=== PATIENT | female | born 1980 | race Caucasian/White ===

== ENCOUNTER 2025-02-01 14:46 | Inpatient (IN) | payer BC ==
[~2025-02-01] VITALS: Ht 160 cm; Wt 66.2 kg
[2025-02-01 14:48] VITALS: O2SAT 97
[2025-02-01] MEDS: MORPHINE SULFATE 4 MG/ML INJ (FOR IV/IM USE) IV STA (15:18)
[2025-02-01] MEDS: ONDANSETRON HCL 4MG/2ML INJ IV STA (15:18)
[2025-02-01] MEDS: SODIUM CHLORIDE 0.9% (SEPSIS BOLUS) IV ONE (15:26)
[2025-02-01 15:50] LABS: CHLORIDE 101 mEq/L (98-107); PROTHROMBIN TIME 11.1 sec (9.6-11.0); SODIUM 137 mEq/L (136-145)
[2025-02-01 15:51] LABS: CALCIUM 10.2 mg/dL (8.7-10.4)
[2025-02-01 15:56] LABS: CREATININE 1.6 mg/dL (0.6-1.0); GLUCOSE 111 mg/dL (70-105); HCG SCREEN NEGATIVE; HEMATOCRIT. 42.3 % (36.0-48.0); HEMOGLOBIN. 12.5 g/dL (12.0-16.0); MEAN CORPUSCULAR HEMOGLOBIN 28.9 pg (28.0-32.0); MEAN CORPUSCULAR HGB CONC 29.6 g/dL (31.0-37.0); MEAN CORPUSCULAR VOLUME 97.9 fL (81.0-99.0); PLATELET 340 x1000/uL (130-400); RED BLOOD CELL COUNT 4.32 mill/uL (4.2-5.4); RED CELL DISTRIBUTION WIDTH 19.2 % (11.6-14.6); UREA NITROGEN BLOOD 14 mg/dL (9-23)
[2025-02-01 15:57] LABS: ETHANOL BLOOD 300 mg/dL (<10)
[2025-02-01 15:58] LABS: ALANINE AMINOTRANSFERASE 15 IU/L (10-49); ALBUMIN 5.3 g/dL (3.2-4.8); ASPARTATE AMINOTRANSFERASE 52 IU/L (<34); BILIRUBIN DIRECT 0.1 mg/dL (<=3.0); BILIRUBIN TOTAL 0.6 mg/dL (0.1-1.0)
[2025-02-01 15:59] LABS: PROTEIN TOTAL 8.9 g/dL (6.0-8.3)
[2025-02-01 16:09] LABS: CARBON DIOXIDE < 10 mEq/L (21-32)
[2025-02-01 16:10] LABS: POTASSIUM 6.6 mEq/L (3.5-5.1)
[2025-02-01 16:11] LABS: DIFFERENTIAL COMMENT 1
[2025-02-01 16:30] LABS: LACTIC ACID 9.3 mmol/L (0.4-2.0)
[2025-02-01] MEDS: HYDROMORPHONE HCL/PF 2MG/ML INJ IV NR (16:42)
[2025-02-01] MEDS: MEROPENEM 1G/100ML 100 ML IV NR (16:59)
[2025-02-01] MEDS: SODIUM BICARBONATE 8.4% 50MEQ/50ML SYR IV NR ×2 (16:59→19:22)
[2025-02-01] MEDS: DEXTROSE 50% WATER 50ML SYRINGE IV NR ×2 (16:59→19:23)
[2025-02-01] MEDS ORDERED: ACETAMINOPHEN 325MG TABLET PO PRN (17:00)
[2025-02-01] MEDS ORDERED: CLONIDINE 0.1MG TABLET PO PRN (17:00)
[2025-02-01] MEDS ORDERED: LORAZEPAM 2MG/ML INJ IV PRN (17:00)
[2025-02-01] MEDS: DEXT 5%/LACTATED RINGERS 1,000 ML IV ONE (17:00)
[2025-02-01] MEDS: INSULIN REGULAR (HUMULIN R) 1000UNITS/10ML VIAL IV NR ×2 (17:00→19:23)
[2025-02-01] MEDS ORDERED: IPRATROPIUM/ALBUTEROL 0.5-3(2.5)MG/3ML NEB NEB PRN (17:00)
[2025-02-01] MEDS ORDERED: VANCOMYCIN 1.5GM/250ML 250 ML IV NR (17:00)
[2025-02-01 17:21] LABS: ANISOCYTOSIS 2+; PLATELET ESTIMATE NORMAL
[2025-02-01] MEDS: ONDANSETRON HCL 4MG/2ML INJ IV PRN (17:50)
[2025-02-01] MEDS: MVI, ADULT NO.1 10 ML, FOLIC ACID 1 MG, THIAMINE HCL 100 MG in SODIUM CHLORIDE 0.9% 1,0... IV SCH (18:00)
[2025-02-01 18:08] LABS: BG BASE EXCESS -18.2 mmol/L (-2.0-3.0); BG CARBOXYHEMOGLOBIN 0.6 % (0.5-1.5); BG DEOXYHEMOGLOBIN 2.5 % (0.0-5.0); BG FRACTION INSPIRED OXYGEN 21; BG HCO3 ACT 8.1 mmol/L (21.0-28.0); BG METHEMOGLOBIN 0.4 % (0.5-1.5); BG OXYGEN SATURATION 97.5 % (94.0-98.0); BG OXYHEMOGLOBIN 96.5 % (94.0-98.0); BG PCO2 21.8 mmHg (32.0-45.0); BG PO2 102.3 mmHg (83.0-108.0); BG SAMPLE SITE LEFT BRACHIAL; BG TOTAL HEMOGLOBIN 12.2 g/dL (12.0-16.0); BG VENT MODE ROOM AIR
[2025-02-01] MEDS ORDERED: CALCIUM GLUCONATE 100MG/ML 10ML VIAL IV ONE (19:00)
[2025-02-01] MEDS ORDERED: INSULIN REGULAR (HUMULIN R) UD 100 UNITS/ML SYR IV ONE (19:00)
[2025-02-01] MEDS ORDERED: SODIUM BICARBONATE 8.4% 50MEQ/50ML SYR IV ONE (19:00)
[2025-02-01] MEDS ORDERED: DEXTROSE 50% WATER 50ML SYRINGE IV ONE (19:00)
[2025-02-01 19:37] LABS: PHOSPHORUS 5.1 mg/dL (2.5-4.9)
[2025-02-01] MEDS: CALCIUM GLUCONATE 100MG/ML 10ML VIAL IV NR (19:44)
[2025-02-01] MEDS: MORPHINE SULFATE 2 MG/ML INJ (NOT FOR IM USE) IV PRN (19:45)
[2025-02-01 20:00] VITALS: BP 115/73; PULSE 156; RESP 21; TEMP 37.4; O2SAT 96
[2025-02-01] MEDS ORDERED: SODIUM BICARBONATE 100 MEQ in DEXTROSE 5% WATER 900 ML IV SCH (20:15)
[2025-02-01] MEDS: SODIUM BICARBONATE 150 MEQ in DEXTROSE 5% WATER 850 ML IV SCH (20:30)
[2025-02-01] MEDS ORDERED: SODIUM BICARBONATE 150 MEQ in DEXTROSE 5% WATER 850 ML IV SCH (20:30)
[2025-02-01 21:27] LABS: POTASSIUM 3.6 mEq/L (3.5-5.1)
[2025-02-01 21:28] LABS: CALCIUM 9.5 mg/dL (8.7-10.4)
[2025-02-01] MEDS ORDERED: SODIUM CHLORIDE 0.9% 1,000 ML IV SCH (21:30)
[2025-02-01 21:33] LABS: CREATININE 1.1 mg/dL (0.6-1.0)
[2025-02-01 22:00] VITALS: BP 137/77; PULSE 144; RESP 20; O2SAT 98
[2025-02-01] MEDS: PIPERACILLIN/TAZO 3.375G/50ML 50 ML IV SCH (22:59)
[2025-02-01] MEDS: VANCOMYCIN 1.25GM/250ML 250 ML IV NR (23:40)
[2025-02-01 23:59] VITALS: BP 115/73; PULSE 120; RESP 17; TEMP 37.3
[2025-02-02] VITALS (11 sets, daily range): BP systolic 138–161; BP diastolic 74–122; PULSE 97–133; RESP 19–27; TEMP 36.3–37.8; O2SAT 97–99
[2025-02-02] MEDS ORDERED: TRAZ-251 PO (00:43)
[2025-02-02] MEDS ORDERED: FAMO20TA8 PO (00:46)
[2025-02-02] MEDS ORDERED: METO10TA3 PO (00:46)
[2025-02-02] MEDS ORDERED: AMYL1CAP61 PO (00:46)
[2025-02-02 01:34] LABS: CLARITY URINE CLEAR (CLEAR); COLOR URINE YELLOW (YELLOW); GLUCOSE URINE TRACE (NEGATIVE); KETONES URINE 3+ (NEGATIVE); LEUKOCYTE ESTERASE URINE NEGATIVE (NEGATIVE); NITRITE URINE NEGATIVE (NEGATIVE); OCCULT BLOOD URINE TRACE (NEGATIVE); PH URINE 5.5 (4.5-8.0); PROTEIN URINE 2+ (NEGATIVE); SPECIFIC GRAVITY URINE 1.016 (1.005-1.030); UROBILINOGEN URINE 0.2 E.U./dL (0.2-1.0)
[2025-02-02 02:10] LABS: *AMPHETAMINES SCREEN URINE NEGATIVE (NEGATIVE); *BARBITURATES SCREEN URINE NEGATIVE (NEGATIVE); *BENZODIAZEPINES SCREEN URINE NEGATIVE (NEGATIVE); *COCAINE SCREEN URINE NEGATIVE (NEGATIVE)
[2025-02-02 02:11] LABS: CANNABINOID URINE SCREEN PRESUMPTIVE POSITIVE (NEGATIVE); ECSTASY MDMA SCREEN URINE NEGATIVE (NEGATIVE); METHADONE URINE SCREEN NEGATIVE (NEGATIVE); OPIATES URINE SCREEN PRESUMPTIVE POSITIVE (NEGATIVE); PHENCYCLIDINE URINE SCREEN NEGATIVE (NEGATIVE)
[2025-02-02 02:58] LABS: SQUAMOUS EPITHELIAL CELL URINE FEW /lpf (RARE/1+)
[2025-02-02 03:06] LABS: RBC URINE 0-2 /hpf (0-2)
[2025-02-02 03:07] LABS: BACTERIA URINE 2+
[2025-02-02 04:06] LABS: TROPONIN I HIGH SENSITIVITY 1223 ng/L (3.0-34)
[2025-02-02 07:56] LABS: BASOPHILS % 0.3 % (0.0-2.0); EOSINOPHILS % 0.1 % (0.0-5.0); HEMATOCRIT. 31.7 % (36.0-48.0); HEMOGLOBIN. 10.6 g/dL (12.0-16.0); LYMPHOCYTES % 15.6 % (20.0-50.0); MEAN CORPUSCULAR HEMOGLOBIN 28.9 pg (28.0-32.0); MEAN CORPUSCULAR HGB CONC 33.6 g/dL (31.0-37.0); MEAN CORPUSCULAR VOLUME 86.1 fL (81.0-99.0); MONOCYTES % 9.5 % (2.0-8.0); NEUTROPHILS % 74.5 % (40.0-76.0); PLATELET 146 x1000/uL (130-400); RED BLOOD CELL COUNT 3.68 mill/uL (4.2-5.4); RED CELL DISTRIBUTION WIDTH 18.3 % (11.6-14.6)
[2025-02-02 08:06] LABS: CHLORIDE 96 mEq/L (98-107); POTASSIUM 3.6 mEq/L (3.5-5.1); SODIUM 141 mEq/L (136-145)
[2025-02-02 08:07] LABS: CALCIUM 9.5 mg/dL (8.7-10.4); CARBON DIOXIDE 29 mEq/L (21-32)
[2025-02-02 08:12] LABS: CREATININE 0.8 mg/dL (0.6-1.0); GLUCOSE 153 mg/dL (70-105); UREA NITROGEN BLOOD 11 mg/dL (9-23)
[2025-02-02] MEDS: PANTOPRAZOLE SODIUM 40 MG/VIAL IV SCH (09:43)
[2025-02-02] MEDS: ENOXAPARIN 40MG/0.4ML SYR SUBCUT SCH (09:46)
[2025-02-02 10:07] LABS: TROPONIN I HIGH SENSITIVITY 926 ng/L (3.0-34)
[2025-02-02 10:39] LABS: CREATINE KINASE 85 IU/L (34-145)
[2025-02-02] MEDS: VANCOMYCIN 750MG PREMIX 150 ML IV SCH (11:54)
[2025-02-02] MEDS ORDERED: NALOXONE HCL 0.4MG/ML VIAL IV PRN (17:15)
[2025-02-02] MEDS: MORPHINE SULFATE 4 MG/ML INJ (FOR IV/IM USE) IV PRN (18:19)
[2025-02-02] MEDS: METOCLOPRAMIDE HCL 10MG/2ML VIAL IV SCH (18:19)
[2025-02-02] MEDS ORDERED: MORPHINE SULFATE 2 MG/ML INJ (NOT FOR IM USE) IV PRN (23:00)
[2025-02-03] VITALS (13 sets, daily range): BP systolic 127–169; BP diastolic 82–107; PULSE 82–116; RESP 9–28; TEMP 37.1–37.8; O2SAT 96–98
[2025-02-03 06:04] LABS: CARBON DIOXIDE 35 mEq/L (21-32); CHLORIDE 94 mEq/L (98-107); SODIUM 142 mEq/L (136-145)
[2025-02-03 06:05] LABS: CALCIUM 9.5 mg/dL (8.7-10.4)
[2025-02-03 06:10] LABS: CREATININE 0.6 mg/dL (0.6-1.0); GLUCOSE 116 mg/dL (70-105); UREA NITROGEN BLOOD 5 mg/dL (9-23)
[2025-02-03 06:12] LABS: PHOSPHORUS 1.1 mg/dL (2.5-4.9)
[2025-02-03 06:23] LABS: BASOPHILS % 0.2 % (0.0-2.0); HEMATOCRIT. 35.8 % (36.0-48.0); HEMOGLOBIN. 11.9 g/dL (12.0-16.0); LYMPHOCYTES % 22.2 % (20.0-50.0); MEAN CORPUSCULAR HEMOGLOBIN 29.1 pg (28.0-32.0); MEAN CORPUSCULAR HGB CONC 33.3 g/dL (31.0-37.0); MEAN CORPUSCULAR VOLUME 87.3 fL (81.0-99.0); MEAN PLATELET VOLUME 8.2 fl (7.4-10.4); MONOCYTES % 5.2 % (2.0-8.0); NEUTROPHILS % 72.4 % (40.0-76.0); PLATELET 141 x1000/uL (130-400); RED CELL DISTRIBUTION WIDTH 18.4 % (11.6-14.6); WHITE BLOOD COUNT 5.7 x1000/uL (4.5-11.0)
[2025-02-03 06:59] LABS: POTASSIUM 2.3 mEq/L (3.5-5.1)
[2025-02-03] MEDS: KCL 20MEQ/100ML PREMIX 100 ML IV SCH (10:36)
[2025-02-03] MEDS: MAGNESIUM 2 G PREMIX 50 ML IV NR (10:37)
[2025-02-03] MEDS: LORAZEPAM 0.5MG TABLET PO PRN (12:44)
[2025-02-03] MEDS: POTASSIUM PHOSPHATE 30 MMOL in SODIUM CHLORIDE 0.9% 490 ML IV NR (14:05)
[2025-02-03 17:42] LABS: POTASSIUM 2.4 mEq/L (3.5-5.1)
[2025-02-03] MEDS ORDERED: VANCOMYCIN 1.25GM/250ML IV SCH (21:00)
[2025-02-03] MEDS: POTASSIUM CHLORIDE 60 MEQ in SODIUM CHLORIDE 0.9% 500 ML IV NR (21:58)
[2025-02-04] VITALS (9 sets, daily range): BP systolic 113–143; BP diastolic 72–102; PULSE 73–97; RESP 12–20; TEMP 36.7–37.4; O2SAT 95–99
[2025-02-04 06:03] LABS: CARBON DIOXIDE 28 mEq/L (21-32); CHLORIDE 104 mEq/L (98-107); SODIUM 145 mEq/L (136-145)
[2025-02-04 06:04] LABS: CALCIUM 9.2 mg/dL (8.7-10.4)
[2025-02-04 06:08] LABS: GLUCOSE 102 mg/dL (70-105)
[2025-02-04 06:09] LABS: UREA NITROGEN BLOOD 5 mg/dL (9-23)
[2025-02-04 06:11] LABS: PHOSPHORUS 2.6 mg/dL (2.5-4.9)
[2025-02-04 06:20] LABS: CREATININE 0.4 mg/dL (0.6-1.0)
[2025-02-04 06:24] LABS: BASOPHILS % 0.5 % (0.0-2.0); EOSINOPHILS % 0.5 % (0.0-5.0); HEMATOCRIT. 31.8 % (36.0-48.0); HEMOGLOBIN. 10.4 g/dL (12.0-16.0); LYMPHOCYTES % 30.7 % (20.0-50.0); MEAN CORPUSCULAR HEMOGLOBIN 28.7 pg (28.0-32.0); MEAN CORPUSCULAR HGB CONC 32.7 g/dL (31.0-37.0); MEAN CORPUSCULAR VOLUME 87.8 fL (81.0-99.0); MEAN PLATELET VOLUME 8.4 fl (7.4-10.4); MONOCYTES % 4.4 % (2.0-8.0); NEUTROPHILS % 63.9 % (40.0-76.0); PLATELET 122 x1000/uL (130-400); RED BLOOD CELL COUNT 3.62 mill/uL (4.2-5.4); RED CELL DISTRIBUTION WIDTH 18.4 % (11.6-14.6); WHITE BLOOD COUNT 5.4 x1000/uL (4.5-11.0)
[2025-02-04 10:33] LABS: CHLORIDE 103 mEq/L (98-107); POTASSIUM 2.9 mEq/L (3.5-5.1); SODIUM 142 mEq/L (136-145)
[2025-02-04 10:34] LABS: CALCIUM 9.5 mg/dL (8.7-10.4); CARBON DIOXIDE 26 mEq/L (21-32)
[2025-02-04 10:39] LABS: CREATININE 0.5 mg/dL (0.6-1.0); GLUCOSE 97 mg/dL (70-105)
[2025-02-04 10:40] LABS: UREA NITROGEN BLOOD 6 mg/dL (9-23)
[2025-02-04] MEDS ORDERED: KCL 20MEQ/100ML PREMIX 100 ML IV SCH (11:00)
[2025-02-04] MEDS: KCL 20MEQ/100ML PREMIX 100 ML IV SCH (11:32)
[2025-02-04] MEDS: HYDROCODONE/ACETAMINOPHEN 5/325MG TABLET PO PRN (18:09)
[2025-02-04] MEDS: POTASSIUM CHLORIDE 20MEQ TABLET SR PO NR (22:18)
[2025-02-05] VITALS: BP 148/93; PULSE 94; RESP 19; TEMP 36.8; O2SAT 98
[2025-02-05 01:16] LABS: CHLORIDE 100 mEq/L (98-107); SODIUM 138 mEq/L (136-145)
[2025-02-05 01:17] LABS: CALCIUM 9.9 mg/dL (8.7-10.4); CARBON DIOXIDE 26 mEq/L (21-32)
[2025-02-05 01:22] LABS: CREATININE 0.5 mg/dL (0.6-1.0); GLUCOSE 91 mg/dL (70-105); UREA NITROGEN BLOOD 6 mg/dL (9-23)
[2025-02-05 04:00] VITALS: BP 156/90; RESP 18; TEMP 36.2; O2SAT 88
[2025-02-05 07:27] LABS: BASOPHILS % 0.6 % (0.0-2.0); EOSINOPHILS % 2.1 % (0.0-5.0); HEMATOCRIT. 32.1 % (36.0-48.0); HEMOGLOBIN. 10.6 g/dL (12.0-16.0); LYMPHOCYTES % 43.4 % (20.0-50.0); MEAN CORPUSCULAR HEMOGLOBIN 28.8 pg (28.0-32.0); MEAN CORPUSCULAR HGB CONC 32.9 g/dL (31.0-37.0); MEAN CORPUSCULAR VOLUME 87.4 fL (81.0-99.0); MEAN PLATELET VOLUME 7.9 fl (7.4-10.4); MONOCYTES % 5.5 % (2.0-8.0); NEUTROPHILS % 48.4 % (40.0-76.0); PLATELET 120 x1000/uL (130-400); RED BLOOD CELL COUNT 3.68 mill/uL (4.2-5.4); RED CELL DISTRIBUTION WIDTH 18.3 % (11.6-14.6); WHITE BLOOD COUNT 4.3 x1000/uL (4.5-11.0)
[2025-02-05 07:31] LABS: CHLORIDE 104 mEq/L (98-107); SODIUM 142 mEq/L (136-145)
[2025-02-05 07:32] LABS: CALCIUM 9.8 mg/dL (8.7-10.4); CARBON DIOXIDE 27 mEq/L (21-32)
[2025-02-05 07:37] LABS: CREATININE 0.5 mg/dL (0.6-1.0); GLUCOSE 102 mg/dL (70-105)
[2025-02-05 07:38] LABS: UREA NITROGEN BLOOD 5 mg/dL (9-23)
[2025-02-05 08:57] VITALS: BP 152/82; PULSE 78; RESP 18; TEMP 36.9; O2SAT 97
[2025-02-05] MEDS: KCL 20MEQ/100ML PREMIX 100 ML IV SCH (09:30)
[2025-02-05 12:00] VITALS: BP 155/93; PULSE 78; RESP 18; TEMP 36.6; O2SAT 97
[2025-02-05 16:00] VITALS: BP_SYST 155; BP_SYST 157; BP_DIAS 89; BP_DIAS 94; PULSE 85; PULSE 88; RESP 18; RESP 19; TEMP 36.4; TEMP 36.5; O2SAT 99
[2025-02-05] MEDS: POTASSIUM CHLORIDE 20MEQ TABLET SR PO SCH (16:15)
[2025-02-05 20:00] VITALS: BP 158/94; PULSE 102; RESP 20; TEMP 36.6; O2SAT 99
[2025-02-05] MEDS: ZOLPIDEM TARTRATE 5MG TABLET PO PRN (22:03)
[2025-02-06] VITALS: BP 137/99; PULSE 98; RESP 20; TEMP 36.2; O2SAT 97
[2025-02-06 04:00] VITALS: BP 129/81; PULSE 72; RESP 20; TEMP 36.5; O2SAT 98
[2025-02-06 07:23] LABS: BASOPHILS % 0.9 % (0.0-2.0); EOSINOPHILS % 3.3 % (0.0-5.0); HEMATOCRIT. 35.4 % (36.0-48.0); HEMOGLOBIN. 11.2 g/dL (12.0-16.0); LYMPHOCYTES % 47.4 % (20.0-50.0); MEAN CORPUSCULAR HEMOGLOBIN 28.5 pg (28.0-32.0); MEAN CORPUSCULAR HGB CONC 31.6 g/dL (31.0-37.0); MEAN PLATELET VOLUME 8.2 fl (7.4-10.4); MONOCYTES % 8.1 % (2.0-8.0); NEUTROPHILS % 40.3 % (40.0-76.0); PLATELET 137 x1000/uL (130-400); RED BLOOD CELL COUNT 3.93 mill/uL (4.2-5.4); RED CELL DISTRIBUTION WIDTH 18.7 % (11.6-14.6); WHITE BLOOD COUNT 4.4 x1000/uL (4.5-11.0)
[2025-02-06 07:31] LABS: CARBON DIOXIDE 28 mEq/L (21-32); CHLORIDE 104 mEq/L (98-107); POTASSIUM 3.3 mEq/L (3.5-5.1); SODIUM 142 mEq/L (136-145)
[2025-02-06 07:32] LABS: CALCIUM 10.2 mg/dL (8.7-10.4)
[2025-02-06 07:37] LABS: CREATININE 0.6 mg/dL (0.6-1.0); GLUCOSE 109 mg/dL (70-105); UREA NITROGEN BLOOD 9 mg/dL (9-23)
[2025-02-06 08:00] VITALS: BP 114/78; PULSE 75; RESP 15; TEMP 36.1; O2SAT 96
[2025-02-06 12:00] VITALS: BP 154/81; PULSE 91; RESP 18; TEMP 36.3; O2SAT 98
[2025-02-06] MEDS ORDERED: TRAZ-251 PO (15:19)
[2025-02-06] MEDS ORDERED: AMYL1CAP61 PO (15:19)
[2025-02-06] MEDS ORDERED: POTA-204 PO (15:19)
[2025-02-06] MEDS ORDERED: THIA100T72 MT (15:21)
[2025-02-06] MEDS ORDERED: ONDA4TAB50 MT (15:21)
[2025-02-06 16:00] VITALS: BP 136/78; PULSE 82; RESP 18; TEMP 36.6; O2SAT 99
[2025-02-06] MEDS ORDERED: HYDR-4001 MT (16:15)
[2025-02-06 16:47] VITALS: BP 136/78; PULSE 82; TEMP 97.9
== END 2025-02-06 18:10 | disposition home or self-care (01) | DRG 871 ==
LOC: ER 14:46 → EDBEDREQ 16:42 → EDBEDREQSVC 16:42 → 5EST 18:07 → 6WST 02-04 17:16
PROVIDERS: ADMIT Internal Medicine; ATTEND Internal Medicine
DX: A41.9 Sepsis, unspecified organism (principal); G92.8 Other toxic encephalopathy; K85.90 Acute pancreatitis without necrosis or infection, unspecified; I21.4 Non-ST elevation (NSTEMI) myocardial infarction; N20.1 Calculus of ureter; E87.29 Other acidosis; N17.9 Acute kidney failure, unspecified; K52.9 Noninfective gastroenteritis and colitis, unspecified; F10.129 Alcohol abuse with intoxication, unspecified; E87.5 Hyperkalemia; R16.0 Hepatomegaly, not elsewhere classified; N20.0 Calculus of kidney; N18.1 Chronic kidney disease, stage 1; R80.9 Proteinuria, unspecified; E83.39 Other disorders of phosphorus metabolism; E83.42 Hypomagnesemia; E86.9 Volume depletion, unspecified; E87.6 Hypokalemia; Y90.8 Blood alcohol level of 240 mg/100 ml or more; Z22.322 Carrier or suspected carrier of Methicillin resistant Staphylococcus aureus; Z90.710 Acquired absence of both cervix and uterus
CPT/HCPCS: 36415; 36600; 71045; 74176; 76770; 80048; 80076; 80202; 80305; 80320; 81003; 82375; 82550; 82805; 82962; 83605; 83735; 84100; 84132; 84145; 84484; 84703; 85025; 86850; 86900; 87045; 87449; 93005; 93970; 99291; A4606; J0610; J1171; J1650; J1815; J2185; J2270; J2405; J2470; J2543; J2765; J3370; J3411; J3475; J3480; J3490; J7030; J7040; J7070; J7121; G0480

== ENCOUNTER 2025-03-05 20:25 | Inpatient (IN) | payer BC ==
[~2025-03-05] VITALS: Ht 154.9 cm; Wt 67.6 kg
[~2025-03-05 20:25] MED LIST: AMYL1CAP61 PO; HYDR-4001 MT; ONDA4TAB50 MT; POTA-204 PO; THIA100T72 MT; TRAZ-251 PO
[2025-03-05 21:06] LABS: HEMATOCRIT. 38.4 % (36.0-48.0); HEMOGLOBIN. 12.5 g/dL (12.0-16.0); LYMPHOCYTES % 18.1 % (20.0-50.0); MEAN CORPUSCULAR HEMOGLOBIN 29.7 pg (28.0-32.0); MEAN CORPUSCULAR HGB CONC 32.6 g/dL (31.0-37.0); MEAN PLATELET VOLUME 7.3 fl (7.4-10.4); MONOCYTES % 3.5 % (2.0-8.0); NEUTROPHILS % 77.4 % (40.0-76.0); PLATELET 361 x1000/uL (130-400); RED BLOOD CELL COUNT 4.22 mill/uL (4.2-5.4); RED CELL DISTRIBUTION WIDTH 20.3 % (11.6-14.6); WHITE BLOOD COUNT 6.8 x1000/uL (4.5-11.0)
[2025-03-05 21:15] LABS: CHLORIDE 98 mEq/L (98-107); POTASSIUM 4.1 mEq/L (3.5-5.1); SODIUM 134 mEq/L (136-145)
[2025-03-05 21:16] LABS: CALCIUM 9.6 mg/dL (8.7-10.4); CARBON DIOXIDE 13 mEq/L (21-32)
[2025-03-05 21:21] LABS: CREATININE 0.7 mg/dL (0.6-1.0); GLUCOSE 70 mg/dL (70-105); TROPONIN I HIGH SENSITIVITY 7 ng/L (3.0-34)
[2025-03-05 21:22] LABS: UREA NITROGEN BLOOD 7 mg/dL (9-23)
[2025-03-05 21:36] LABS: LACTIC ACID 6.2 mmol/L (0.4-2.0)
[2025-03-05] MEDS: SODIUM CHLORIDE 0.9% 1,000 ML IV ONE (21:48)
[2025-03-05] MEDS: ONDANSETRON HCL 4MG/2ML INJ IV STA (22:02)
[2025-03-05] MEDS: MORPHINE SULFATE 4 MG/ML INJ (FOR IV/IM USE) IV STA (22:06)
[2025-03-05] MEDS ORDERED: PIPERACILLIN/TAZO 3.375G/100ML 100 ML IV SCH (22:15)
[2025-03-05] MEDS: PIPERACILLIN/TAZO 3.375G/50ML 50 ML IV NR (23:00)
[2025-03-06] MEDS: METOCLOPRAMIDE HCL 10MG/2ML VIAL IV ONE (00:03)
[2025-03-06] MEDS: SODIUM CHLORIDE 0.9% 1,000 ML IV ONE (00:04)
[2025-03-06] MEDS: MORPHINE SULFATE 4 MG/ML INJ (FOR IV/IM USE) IV ONE (01:43)
[2025-03-06] MEDS: ONDANSETRON HCL 4MG/2ML INJ IV PRN ×2 (03:47→12:46)
[2025-03-06 04:00] VITALS: BP_SYST 149; BP_SYST 160; BP_DIAS 84; BP_DIAS 98; PULSE 109; PULSE 128; RESP 18; RESP 20; TEMP 36.5; TEMP 36.6; O2SAT 96
[2025-03-06] MEDS ORDERED: IOHEXOL-350 100 ML BOTTLE ONE (04:22)
[2025-03-06] MEDS: MORPHINE SULFATE 2 MG/ML INJ (NOT FOR IM USE) IV PRN (04:56)
[2025-03-06] MEDS: SODIUM CHLORIDE 0.9% 1,000 ML IV SCH (05:00)
[2025-03-06] MEDS: FOLIC ACID 1 MG, THIAMINE HCL 100 MG, MVI, ADULT NO.1 10 ML in DEXTROSE 5% WATER 1,000 ML IV ONE (05:46)
[2025-03-06] MEDS ORDERED: CLONIDINE 0.1MG TABLET PO PRN ×2 (07:30→11:15)
[2025-03-06 08:00] VITALS: BP 156/87; PULSE 102; RESP 18; TEMP 36.8; O2SAT 96
[2025-03-06] MEDS ORDERED: NALOXONE HCL 0.4MG/ML VIAL IV PRN (08:00)
[2025-03-06] MEDS ORDERED: ACETAMINOPHEN 325MG TABLET PO PRN (11:15)
[2025-03-06 12:00] VITALS: BP 142/88; PULSE 110; RESP 18; TEMP 36.9; O2SAT 98
[2025-03-06] MEDS: ENOXAPARIN 40MG/0.4ML SYR SUBCUT SCH (12:00)
[2025-03-06] MEDS: HYDROMORPHONE HCL/PF 1MG/ML INJ IV PRN (13:08)
[2025-03-06 13:21] LABS: BASOPHILS % 0.7 % (0.0-2.0); EOSINOPHILS % 0.1 % (0.0-5.0); HEMATOCRIT. 32.6 % (36.0-48.0); HEMOGLOBIN. 10.6 g/dL (12.0-16.0); LYMPHOCYTES % 17.4 % (20.0-50.0); MEAN CORPUSCULAR HEMOGLOBIN 29.8 pg (28.0-32.0); MEAN CORPUSCULAR HGB CONC 32.7 g/dL (31.0-37.0); MEAN PLATELET VOLUME 7.9 fl (7.4-10.4); MONOCYTES % 5.3 % (2.0-8.0); NEUTROPHILS % 76.5 % (40.0-76.0); PLATELET 276 x1000/uL (130-400); RED BLOOD CELL COUNT 3.58 mill/uL (4.2-5.4); RED CELL DISTRIBUTION WIDTH 20.2 % (11.6-14.6); WHITE BLOOD COUNT 12.6 x1000/uL (4.5-11.0)
[2025-03-06 13:27] LABS: CHLORIDE 97 mEq/L (98-107); POTASSIUM 4.3 mEq/L (3.5-5.1); SODIUM 127 mEq/L (136-145)
[2025-03-06 13:28] LABS: CARBON DIOXIDE 16 mEq/L (21-32)
[2025-03-06 13:33] LABS: CREATININE 0.7 mg/dL (0.6-1.0); GLUCOSE 112 mg/dL (70-105); UREA NITROGEN BLOOD 6 mg/dL (9-23)
[2025-03-06] MEDS: PIPERACILLIN/TAZO 3.375G/50ML 50 ML IV SCH (15:04)
[2025-03-06 16:00] VITALS: BP 151/95; PULSE 100; RESP 18; TEMP 36.8; O2SAT 100
[2025-03-06 20:00] VITALS: BP 146/85; PULSE 99; RESP 18; TEMP 36.6; O2SAT 90
[2025-03-06] MEDS: ZOLPIDEM TARTRATE 5MG TABLET PO PRN (22:50)
[2025-03-07] VITALS: BP 150/87; PULSE 99; RESP 18; TEMP 36.4; O2SAT 99
[2025-03-07 04:00] VITALS: BP 123/78; PULSE 101; RESP 18; TEMP 36.4; O2SAT 98
[2025-03-07 06:58] LABS: BASOPHILS % 1.1 % (0.0-2.0); EOSINOPHILS % 2.2 % (0.0-5.0); HEMATOCRIT. 31.5 % (36.0-48.0); HEMOGLOBIN. 10.3 g/dL (12.0-16.0); LYMPHOCYTES % 41.2 % (20.0-50.0); MEAN CORPUSCULAR HEMOGLOBIN 29.9 pg (28.0-32.0); MEAN CORPUSCULAR HGB CONC 32.9 g/dL (31.0-37.0); MEAN CORPUSCULAR VOLUME 90.8 fL (81.0-99.0); MONOCYTES % 5.7 % (2.0-8.0); NEUTROPHILS % 49.8 % (40.0-76.0); PLATELET 236 x1000/uL (130-400); RED BLOOD CELL COUNT 3.46 mill/uL (4.2-5.4); RED CELL DISTRIBUTION WIDTH 19.3 % (11.6-14.6); WHITE BLOOD COUNT 5.1 x1000/uL (4.5-11.0)
[2025-03-07 07:03] LABS: CARBON DIOXIDE 21 mEq/L (21-32); CHLORIDE 101 mEq/L (98-107); POTASSIUM 3.6 mEq/L (3.5-5.1)
[2025-03-07 07:04] LABS: CALCIUM 9.7 mg/dL (8.7-10.4)
[2025-03-07 07:07] LABS: CREATININE 0.7 mg/dL (0.6-1.0)
[2025-03-07 07:08] LABS: CLARITY URINE CLEAR (CLEAR); COLOR URINE YELLOW (YELLOW); GLUCOSE URINE NEGATIVE (NEGATIVE); KETONES URINE 2+ (NEGATIVE); LEUKOCYTE ESTERASE URINE 1+ (NEGATIVE); NITRITE URINE NEGATIVE (NEGATIVE); OCCULT BLOOD URINE NEGATIVE (NEGATIVE); PH URINE 6.5 (4.5-8.0); PROTEIN URINE TRACE (NEGATIVE); SPECIFIC GRAVITY URINE 1.011 (1.005-1.030); UROBILINOGEN URINE 0.2 E.U./dL (0.2-1.0)
[2025-03-07 07:09] LABS: GLUCOSE 73 mg/dL (70-105); UREA NITROGEN BLOOD 7 mg/dL (9-23)
[2025-03-07 07:12] LABS: SODIUM 136 mEq/L (136-145)
[2025-03-07 08:00] VITALS: BP 141/84; PULSE 69; RESP 12; TEMP 36.6; O2SAT 99
[2025-03-07 08:21] LABS: *AMPHETAMINES SCREEN URINE NEGATIVE (NEGATIVE); *BARBITURATES SCREEN URINE NEGATIVE (NEGATIVE); *BENZODIAZEPINES SCREEN URINE NEGATIVE (NEGATIVE); *COCAINE SCREEN URINE NEGATIVE (NEGATIVE)
[2025-03-07 08:22] LABS: METHADONE URINE SCREEN NEGATIVE (NEGATIVE)
[2025-03-07 08:23] LABS: CANNABINOID URINE SCREEN PRESUMPTIVE POSITIVE (NEGATIVE); ECSTASY MDMA SCREEN URINE NEGATIVE (NEGATIVE); OPIATES URINE SCREEN PRESUMPTIVE POSITIVE (NEGATIVE); PHENCYCLIDINE URINE SCREEN NEGATIVE (NEGATIVE)
[2025-03-07 08:34] LABS: SQUAMOUS EPITHELIAL CELL URINE 2+ /lpf (RARE/1+)
[2025-03-07 08:35] LABS: RBC URINE NONE SEEN /hpf (0-2)
[2025-03-07 08:35] LABS: BG BASE EXCESS -6.7 mmol/L (-2.0-3.0); BG CARBOXYHEMOGLOBIN 1.6 % (0.5-1.5); BG DEOXYHEMOGLOBIN 1.5 % (0.0-5.0); BG FRACTION INSPIRED OXYGEN 21; BG HCO3 ACT 17.4 mmol/L (21.0-28.0); BG METHEMOGLOBIN 0.3 % (0.5-1.5); BG OXYGEN SATURATION 98.5 % (94.0-98.0); BG OXYHEMOGLOBIN 96.6 % (94.0-98.0); BG PCO2 30.1 mmHg (32.0-45.0); BG PO2 104.9 mmHg (83.0-108.0); BG TOTAL HEMOGLOBIN 10.6 g/dL (12.0-16.0); BG VENT MODE ROOM AIR
[2025-03-07 08:36] LABS: BACTERIA URINE TRACE
[2025-03-07] MEDS: PANTOPRAZOLE SODIUM 40 MG/VIAL IV SCH (09:01)
[2025-03-07] MEDS: DOCUSATE SODIUM 100MG CAPSULE PO SCH (10:54)
[2025-03-07 12:00] VITALS: BP 125/64; PULSE 77; RESP 18; TEMP 36.7; O2SAT 100
[2025-03-07] MEDS: NA PHOS,M-B/NA PHOS,DI-BA ENEMA 118ML PR NR (15:01)
[2025-03-07 16:00] VITALS: BP 128/79; PULSE 89; RESP 13; TEMP 36.6; O2SAT 98
[2025-03-07 20:00] VITALS: BP 124/76; PULSE 95; RESP 17; TEMP 36.6; O2SAT 96
[2025-03-08] VITALS (7 sets, daily range): BP systolic 99–140; BP diastolic 61–76; PULSE 75–90; RESP 16–18; TEMP 36.5–36.8; O2SAT 98–100
[2025-03-08 11:57] LABS: BASOPHILS % 0.7 % (0.0-2.0); EOSINOPHILS % 2.4 % (0.0-5.0); HEMATOCRIT. 31.1 % (36.0-48.0); HEMOGLOBIN. 10.4 g/dL (12.0-16.0); LYMPHOCYTES % 34.1 % (20.0-50.0); MEAN CORPUSCULAR HEMOGLOBIN 29.9 pg (28.0-32.0); MEAN CORPUSCULAR HGB CONC 33.3 g/dL (31.0-37.0); MEAN CORPUSCULAR VOLUME 89.8 fL (81.0-99.0); MEAN PLATELET VOLUME 8.2 fl (7.4-10.4); NEUTROPHILS % 56.8 % (40.0-76.0); PLATELET 191 x1000/uL (130-400); RED BLOOD CELL COUNT 3.46 mill/uL (4.2-5.4); RED CELL DISTRIBUTION WIDTH 18.7 % (11.6-14.6); WHITE BLOOD COUNT 3.5 x1000/uL (4.5-11.0)
[2025-03-08 12:20] LABS: CARBON DIOXIDE 22 mEq/L (21-32); CHLORIDE 102 mEq/L (98-107); POTASSIUM 3.3 mEq/L (3.5-5.1); SODIUM 136 mEq/L (136-145)
[2025-03-08 12:21] LABS: CALCIUM 9.4 mg/dL (8.7-10.4)
[2025-03-08 12:25] LABS: CREATININE 0.5 mg/dL (0.6-1.0)
[2025-03-08 12:26] LABS: GLUCOSE 103 mg/dL (70-105); UREA NITROGEN BLOOD 5 mg/dL (9-23)
[2025-03-09] VITALS: BP 107/72; PULSE 73; RESP 16; TEMP 36.7; O2SAT 100
[2025-03-09 04:00] VITALS: BP 124/62; PULSE 95; RESP 18; TEMP 36.6; O2SAT 99
[2025-03-09 08:00] VITALS: BP 120/68; PULSE 65; RESP 19; TEMP 36.4; O2SAT 98
[2025-03-09 08:36] LABS: BASOPHILS % 0.7 % (0.0-2.0); EOSINOPHILS % 2.5 % (0.0-5.0); HEMATOCRIT. 29.1 % (36.0-48.0); HEMOGLOBIN. 9.6 g/dL (12.0-16.0); LYMPHOCYTES % 41.1 % (20.0-50.0); MEAN CORPUSCULAR HEMOGLOBIN 29.3 pg (28.0-32.0); MEAN CORPUSCULAR HGB CONC 32.9 g/dL (31.0-37.0); MEAN CORPUSCULAR VOLUME 88.9 fL (81.0-99.0); MEAN PLATELET VOLUME 8.1 fl (7.4-10.4); MONOCYTES % 5.6 % (2.0-8.0); NEUTROPHILS % 50.1 % (40.0-76.0); PLATELET 174 x1000/uL (130-400); RED BLOOD CELL COUNT 3.28 mill/uL (4.2-5.4); RED CELL DISTRIBUTION WIDTH 18.6 % (11.6-14.6); WHITE BLOOD COUNT 4.2 x1000/uL (4.5-11.0)
[2025-03-09 08:43] LABS: CARBON DIOXIDE 25 mEq/L (21-32); CHLORIDE 102 mEq/L (98-107); SODIUM 137 mEq/L (136-145)
[2025-03-09 08:45] LABS: CALCIUM 8.9 mg/dL (8.7-10.4)
[2025-03-09 08:49] LABS: CREATININE 0.5 mg/dL (0.6-1.0); GLUCOSE 96 mg/dL (70-105); UREA NITROGEN BLOOD < 5 mg/dL (9-23)
[2025-03-09 12:00] VITALS: BP 115/72; PULSE 86; RESP 17; TEMP 36.3; O2SAT 98
[2025-03-09] MEDS ORDERED: THIA100T72 MT (13:51)
[2025-03-09] MEDS ORDERED: ONDA4TAB50 MT (13:51)
[2025-03-09] MEDS ORDERED: POTA-204 PO (13:51)
[2025-03-09] MEDS: POTASSIUM CHLORIDE 20MEQ TABLET SR PO SCH (14:56)
[2025-03-09 16:00] VITALS: BP 126/78; PULSE 89; RESP 18; TEMP 36.4; O2SAT 98
[2025-03-09 16:30] VITALS: BP 126/78; PULSE 89; TEMP 97.6; O2SAT 98
== END 2025-03-09 16:51 | disposition home or self-care (01) | DRG 871 ==
LOC: ER 20:25 → 5WST 03-06 01:53
PROVIDERS: ADMIT Internal Medicine; ATTEND Internal Medicine
DX: A41.9 Sepsis, unspecified organism (principal); K85.90 Acute pancreatitis without necrosis or infection, unspecified; N13.6 Pyonephrosis; K86.1 Other chronic pancreatitis; F10.20 Alcohol dependence, uncomplicated; Z90.710 Acquired absence of both cervix and uterus; Z98.891 History of uterine scar from previous surgery
CPT/HCPCS: 36415; 36600; 71045; 74174; 80048; 80305; 81003; 82375; 82805; 82962; 83605; 84484; 85025; 87106; 93005; 93970; 96361; 96365; 96375; 99291; J1171; J1650; J2270; J2405; J2470; J2543; J2765; J3411; J3490; J7030; J7070; Q9967

== ENCOUNTER 2025-03-24 21:40 | Emergency (ER) | payer BC ==
[~2025-03-24] VITALS: Ht 165.1 cm; Wt 68.0 kg
[2025-03-24 21:50] VITALS: TEMP 37; O2SAT 97
[2025-03-25 00:52] LABS: CHLORIDE 102 mEq/L (98-107); POTASSIUM 3.9 mEq/L (3.5-5.1); SODIUM 138 mEq/L (136-145)
[2025-03-25 00:53] LABS: CALCIUM 8.8 mg/dL (8.7-10.4); CARBON DIOXIDE 14 mEq/L (21-32)
[2025-03-25 00:54] LABS: BASOPHILS % 0.8 % (0.0-2.0); HEMOGLOBIN. 11.4 g/dL (12.0-16.0); MEAN CORPUSCULAR HEMOGLOBIN 29.5 pg (28.0-32.0); MEAN CORPUSCULAR HGB CONC 32.6 g/dL (31.0-37.0); MEAN CORPUSCULAR VOLUME 90.5 fL (81.0-99.0); MEAN PLATELET VOLUME 7.9 fl (7.4-10.4); MONOCYTES % 3.6 % (2.0-8.0); NEUTROPHILS % 71.6 % (40.0-76.0); PLATELET 231 x1000/uL (130-400); RED BLOOD CELL COUNT 3.86 mill/uL (4.2-5.4); RED CELL DISTRIBUTION WIDTH 18.5 % (11.6-14.6)
[2025-03-25 00:58] LABS: CREATININE 0.5 mg/dL (0.6-1.0); ETHANOL BLOOD 300 mg/dL (<10); GLUCOSE 65 mg/dL (70-105); UREA NITROGEN BLOOD 8 mg/dL (9-23)
[2025-03-25] MEDS: SODIUM CHLORIDE 0.9% 1,000 ML IV ONE (00:58)
[2025-03-25 00:59] LABS: AMYLASE 95 IU/L (30-118); HCG SCREEN NEGATIVE
[2025-03-25 01:00] LABS: ACETAMINOPHEN < 2 ug/mL (10-30); ALANINE AMINOTRANSFERASE 23 IU/L (10-49); ALBUMIN 4.7 g/dL (3.2-4.8); ASPARTATE AMINOTRANSFERASE 48 IU/L (<34); BILIRUBIN DIRECT < 0.1 mg/dL (<=3.0); BILIRUBIN TOTAL 0.4 mg/dL (0.1-1.0); PHOSPHORUS 3.4 mg/dL (2.5-4.9); PROTEIN TOTAL 7.9 g/dL (6.0-8.3)
[2025-03-25 01:20] LABS: INR 0.9; PROTHROMBIN TIME 9.8 sec (9.6-11.0)
[2025-03-25] MEDS: MAGNESIUM 2 G PREMIX 50 ML IV SCH (01:58)
[2025-03-25] MEDS: MAGNESIUM/ALUMINUM HYDROXIDE/SIMETHICONE 30ML UDC PO SCH (01:59)
[2025-03-25] MEDS: ONDANSETRON HCL 4MG/2ML INJ IV SCH (02:01)
[2025-03-25] MEDS ORDERED: SODIUM CHLORIDE 0.9% 1,000 ML IV SCH (03:45)
[2025-03-25] MEDS: KETOROLAC 15MG/ML VIAL IV SCH (03:57)
[2025-03-25] MEDS ORDERED: IBUP-2029 MT (03:59)
[2025-03-25 04:41] LABS: CLARITY URINE CLEAR (CLEAR); COLOR URINE YELLOW (YELLOW); GLUCOSE URINE NEGATIVE (NEGATIVE); KETONES URINE 3+ (NEGATIVE); LEUKOCYTE ESTERASE URINE NEGATIVE (NEGATIVE); NITRITE URINE NEGATIVE (NEGATIVE); OCCULT BLOOD URINE NEGATIVE (NEGATIVE); PH URINE 5.5 (4.5-8.0); PROTEIN URINE 1+ (NEGATIVE); SPECIFIC GRAVITY URINE 1.015 (1.005-1.030); UROBILINOGEN URINE 0.2 E.U./dL (0.2-1.0)
[2025-03-25 04:58] VITALS: BP 115/68; PULSE 100; RESP 18; O2SAT 98
[2025-03-25 06:20] LABS: BACTERIA URINE TRACE; RBC URINE 0-2 /hpf (0-2); SQUAMOUS EPITHELIAL CELL URINE 3+ /lpf (RARE/1+); WBC URINE 0-2 /hpf (0-2)
[2025-03-25 09:19] LABS: *AMPHETAMINES SCREEN URINE NEGATIVE (NEGATIVE)
[2025-03-25 09:20] LABS: *BARBITURATES SCREEN URINE NEGATIVE (NEGATIVE); *BENZODIAZEPINES SCREEN URINE NEGATIVE (NEGATIVE); *COCAINE SCREEN URINE NEGATIVE (NEGATIVE); CANNABINOID URINE SCREEN NEGATIVE (NEGATIVE); ECSTASY MDMA SCREEN URINE NEGATIVE (NEGATIVE); METHADONE URINE SCREEN NEGATIVE (NEGATIVE); OPIATES URINE SCREEN NEGATIVE (NEGATIVE); PHENCYCLIDINE URINE SCREEN NEGATIVE (NEGATIVE)
== END 2025-03-25 05:12 | disposition home or self-care (01) ==
LOC: ER 21:40
DX: F10.229 Alcohol dependence with intoxication, unspecified (principal); R10.84 Generalized abdominal pain; Z79.899 Other long term (current) drug therapy; Z90.710 Acquired absence of both cervix and uterus; Z91.030 Bee allergy status; Y90.8 Blood alcohol level of 240 mg/100 ml or more
CPT/HCPCS: 36415; 74176; 99285; 80076; 80305; 80048; 81003; 80307; 80329; 80320; 82150; 84703; 83690; 83735; 84100; 85025; 85610; 86850; 86900; 86901; 96361; 96365; 96375; J7030; J1885; J3475; J2405; Z7610; G0480

== ENCOUNTER 2025-09-18 19:10 | Inpatient (IN) | payer BC ==
[~2025-09-18] VITALS: Ht 154.9 cm; Wt 73.0 kg
[~2025-09-18 19:10] MED LIST changes: +IBUP-1455 MT
[2025-09-18 19:24] VITALS: O2SAT 99
[2025-09-18] MEDS ORDERED: MORPHINE SULFATE 4 MG/ML INJ (FOR IV/IM USE) IV ONE (20:00)
[2025-09-18 21:16] LABS: BASOPHILS % 1.4 % (0.0-2.0); EOSINOPHILS % 3.6 % (0.0-5.0); HEMATOCRIT. 30.9 % (36.0-48.0); HEMOGLOBIN. 9.8 g/dL (12.0-16.0); LYMPHOCYTES % 37.7 % (20.0-50.0); MEAN PLATELET VOLUME 8.9 fl (7.4-10.4); MONOCYTES % 13.2 % (2.0-8.0); NEUTROPHILS % 44.1 % (40.0-76.0); PLATELET 152 x1000/uL (130-400); RED BLOOD CELL COUNT 3.57 mill/uL (4.2-5.4); RED CELL DISTRIBUTION WIDTH 18.2 % (11.6-14.6)
[2025-09-18 21:31] LABS: CREATININE 0.6 mg/dL (0.6-1.0); UREA NITROGEN BLOOD 6 mg/dL (9-23)
[2025-09-18 21:33] LABS: ASPARTATE AMINOTRANSFERASE 212 IU/L (<34); BILIRUBIN DIRECT 0.2 mg/dL (<=3.0); BILIRUBIN TOTAL 0.6 mg/dL (0.1-1.0); PROTEIN TOTAL 7.2 g/dL (6.0-8.3)
[2025-09-18 21:33] LABS: CLARITY URINE CLOUDY (CLEAR); GLUCOSE URINE NEGATIVE (NEGATIVE); KETONES URINE TRACE (NEGATIVE); LEUKOCYTE ESTERASE URINE TRACE (NEGATIVE); NITRITE URINE NEGATIVE (NEGATIVE); OCCULT BLOOD URINE NEGATIVE (NEGATIVE); PH URINE 6.0 (4.5-8.0); PROTEIN URINE TRACE (NEGATIVE); SPECIFIC GRAVITY URINE 1.026 (1.005-1.030); UROBILINOGEN URINE 2.0 E.U./dL (0.2-1.0)
[2025-09-18] MEDS: SODIUM CHLORIDE 0.9% 1,000 ML IV ONE (22:09)
[2025-09-18] MEDS: MORPHINE SULFATE 4 MG/ML INJ (FOR IV/IM USE) IV SCH (22:09)
[2025-09-18] MEDS: ONDANSETRON HCL 4MG/2ML INJ IV ONE (22:09)
[2025-09-18 22:17] LABS: COLOR URINE YELLOW (YELLOW); RBC URINE NONE SEEN /hpf (0-2); SQUAMOUS EPITHELIAL CELL URINE 3+ /lpf (RARE/1+)
[2025-09-18 22:18] LABS: BACTERIA URINE 1+; MUCUS URINE TRACE /lpf (< = 2+)
[2025-09-18] MEDS ORDERED: NALOXONE HCL 0.4MG/ML VIAL IV PRN (23:00)
[2025-09-18] MEDS ORDERED: MORPHINE SULFATE 2 MG/ML INJ (NOT FOR IM USE) IV PRN (23:00)
[2025-09-18] MEDS ORDERED: ACETAMINOPHEN 325MG TABLET PO PRN (23:00)
[2025-09-18] MEDS ORDERED: MAGNESIUM/ALUMINUM HYDROXIDE/SIMETHICONE 30ML UDC PO PRN (23:00)
[2025-09-18] MEDS ORDERED: ZOLPIDEM TARTRATE 5MG TABLET PO PRN (23:00)
[2025-09-18] MEDS ORDERED: IOHEXOL-300 100 ML BOTTLE ONE (23:22)
[2025-09-18] MEDS: SODIUM CHLORIDE 0.9% 1,000 ML IV SCH (23:50)
[2025-09-18] MEDS: MAGNESIUM 2 G PREMIX 50 ML IV SCH (23:51)
[2025-09-19] VITALS (9 sets, daily range): BP systolic 114–183; BP diastolic 62–116; PULSE 65–90; RESP 17–20; TEMP 36.1–37.2; O2SAT 96–100
[2025-09-19] MEDS: KCL 20MEQ/100ML PREMIX 100 ML IV SCH (00:09)
[2025-09-19] MEDS: MORPHINE SULFATE 4 MG/ML INJ (FOR IV/IM USE) IV PRN (05:22)
[2025-09-19 08:15] LABS: CREATININE 0.5 mg/dL (0.6-1.0)
[2025-09-19 08:18] LABS: UREA NITROGEN BLOOD 6 mg/dL (9-23)
[2025-09-19 08:25] LABS: BASOPHILS % 1.4 % (0.0-2.0); EOSINOPHILS % 4.3 % (0.0-5.0); HEMATOCRIT. 30.7 % (36.0-48.0); HEMOGLOBIN. 9.7 g/dL (12.0-16.0); LYMPHOCYTES % 39.3 % (20.0-50.0); MEAN PLATELET VOLUME 9.0 fl (7.4-10.4); MONOCYTES % 14.2 % (2.0-8.0); NEUTROPHILS % 40.8 % (40.0-76.0); PLATELET 141 x1000/uL (130-400); RED BLOOD CELL COUNT 3.53 mill/uL (4.2-5.4); RED CELL DISTRIBUTION WIDTH 18.2 % (11.6-14.6)
[2025-09-19] MEDS: ENOXAPARIN 30MG/0.3ML SYR SUBCUT SCH (09:00)
[2025-09-19] MEDS: PANTOPRAZOLE SODIUM 40 MG/VIAL IV SCH (09:28)
[2025-09-19] MEDS ORDERED: POTASSIUM CHLORIDE 20MEQ TABLET SR PO ONE (16:15)
[2025-09-19] MEDS: CLONIDINE 0.1MG TABLET PO PRN (17:45)
[2025-09-19] MEDS ORDERED: CLONIDINE 0.2MG TABLET PO PRN (20:30)
[2025-09-19] MEDS: ONDANSETRON HCL 4MG/2ML INJ IV PRN (23:03)
[2025-09-19] MEDS: HYDROCODONE/ACETAMINOPHEN 5/325MG TABLET PO PRN (23:26)
[2025-09-19] MEDS: AMLODIPINE 10MG TABLET PO SCH (23:31)
[2025-09-20] VITALS: BP 125/86; PULSE 92; RESP 18; TEMP 36.6; O2SAT 98
[2025-09-20] MEDS: KETOROLAC 30MG/ML VIAL IV PRN (03:42)
[2025-09-20 04:00] VITALS: BP 117/69; PULSE 71; RESP 16; TEMP 36.5; O2SAT 98
[2025-09-20 06:19] LABS: CREATININE 0.5 mg/dL (0.6-1.0); UREA NITROGEN BLOOD 6 mg/dL (9-23)
[2025-09-20] MEDS: LIPASE/PROTEASE/AMYLASE 4,200/14,200/24,600 UNITS CAP DR PO SCH (07:30)
[2025-09-20 08:00] VITALS: BP 123/65; PULSE 56; RESP 17; TEMP 36.3; O2SAT 99
[2025-09-20 12:00] VITALS: BP 95/53; PULSE 64; RESP 20; TEMP 36.7; O2SAT 97
[2025-09-20] MEDS ORDERED: HYDR-4001 MT (13:16)
[2025-09-20 13:39] LABS: BASOPHILS % 1.0 % (0.0-2.0); EOSINOPHILS % 2.2 % (0.0-5.0); HEMATOCRIT. 34.2 % (36.0-48.0); HEMOGLOBIN. 10.7 g/dL (12.0-16.0); LYMPHOCYTES % 25.9 % (20.0-50.0); MEAN PLATELET VOLUME 9.1 fl (7.4-10.4); MONOCYTES % 14.5 % (2.0-8.0); NEUTROPHILS % 56.4 % (40.0-76.0); PLATELET 173 x1000/uL (130-400); RED BLOOD CELL COUNT 3.97 mill/uL (4.2-5.4); RED CELL DISTRIBUTION WIDTH 18.7 % (11.6-14.6)
[2025-09-20] MEDS: HYDROMORPHONE HCL/PF 2MG/ML INJ IV PRN (14:16)
[2025-09-20 15:44] VITALS: BP 116/68; PULSE 88; RESP 15; TEMP 97.7
[2025-09-20 16:00] VITALS: BP 116/68; PULSE 88; RESP 15; TEMP 36.5; O2SAT 98
== END 2025-09-20 17:31 | disposition home or self-care (01) | DRG 440 ==
LOC: ER 19:10 → 8EST 22:23 → EDBEDREQ 22:26 → EDBEDREQTM 22:26 → ENRESERV 22:48
PROVIDERS: ADMIT Internal Medicine; ATTEND Internal Medicine
DX: K85.90 Acute pancreatitis without necrosis or infection, unspecified (principal); E16.1 Other hypoglycemia; F10.20 Alcohol dependence, uncomplicated; I10 Essential (primary) hypertension; K58.9 Irritable bowel syndrome, unspecified; R74.01 Elevation of levels of liver transaminase levels; K86.1 Other chronic pancreatitis; Z88.8 Allergy status to other drugs, medicaments and biological substances; Z91.030 Bee allergy status; Z79.899 Other long term (current) drug therapy; Z98.891 History of uterine scar from previous surgery; Z90.710 Acquired absence of both cervix and uterus; Z88.5 Allergy status to narcotic agent
CPT/HCPCS: 36415; 74177; 80048; 80076; 81003; 83735; 85025; 93005; 93970; 96361; 96374; 96375; 99285; J1171; J1650; J1885; J2270; J2405; J2470; J3475; J3480; J7030; Q9967